=== PATIENT | male | born 2000 | race African-American/Black ===

== ENCOUNTER 2024-05-15 09:44 | Emergency (ER) | payer MEDICAID, OTHER ==
[~2024-05-15] VITALS: Ht 172.7 cm; Wt 78.0 kg
[2024-05-15 09:48] VITALS: TEMP 36.9; O2SAT 99
[2024-05-15 10:28] LABS: DIFFERENTIAL COMMENT 0; EOSINOPHILS % 0.3 % (0.0-5.0); HEMATOCRIT. 38.6 % (42.0-52.0); HEMOGLOBIN. 13.1 g/dL (14.0-18.0); LYMPHOCYTES % 22.3 % (20.0-50.0); MEAN CORPUSCULAR HEMOGLOBIN 34.3 pg (28.0-32.0); MEAN CORPUSCULAR HGB CONC 33.9 g/dL (31.0-37.0); MEAN CORPUSCULAR VOLUME 101.3 fL (80.0-94.0); MEAN PLATELET VOLUME 8.1 fl (7.4-10.4); MONOCYTES % 3.9 % (2.0-8.0); NEUTROPHILS % 72.5 % (40.0-76.0); PLATELET 197 x1000/uL (130-400); RED BLOOD CELL COUNT 3.81 mill/uL (4.7-6.1); RED CELL DISTRIBUTION WIDTH 14.4 % (11.6-14.6)
[2024-05-15 10:35] LABS: CARBON DIOXIDE 23 mEq/L (21-32); CHLORIDE 99 mEq/L (98-107); POTASSIUM 3.4 mEq/L (3.5-5.1); SODIUM 137 mEq/L (136-145)
[2024-05-15 10:36] LABS: CALCIUM 10.1 mg/dL (8.7-10.4)
[2024-05-15 10:40] LABS: CREATININE 0.9 mg/dL (0.6-1.3)
[2024-05-15 10:41] LABS: GLUCOSE 126 mg/dL (70-105); UREA NITROGEN BLOOD 7 mg/dL (9-23)
[2024-05-15 10:42] LABS: ALANINE AMINOTRANSFERASE 111 IU/L (10-49)
[2024-05-15 10:43] LABS: ALBUMIN 4.8 g/dL (3.2-4.8); ASPARTATE AMINOTRANSFERASE 198 IU/L (<34); BILIRUBIN TOTAL 0.6 mg/dL (0.1-1.0); PROTEIN TOTAL 8.2 g/dL (6.0-8.3)
[2024-05-15] MEDS: MORPHINE SULFATE 4 MG/ML INJ (FOR IV/IM USE) IM ONE (10:46)
[2024-05-15] MEDS ORDERED: KETOROLAC 15MG/ML VIAL IV ONE (11:15)
[2024-05-15] MEDS: SODIUM CHLORIDE 0.9% 1,000 ML IV ONE (12:53)
[2024-05-15 12:59] VITALS: BP 142/103; PULSE 127; RESP 18
[2024-05-15] MEDS: KETOROLAC 15MG/ML VIAL IV NR (12:59)
[2024-05-15] MEDS ORDERED: SODIUM CHLORIDE 0.9% 1,000 ML IV SCH (15:00)
[2024-05-15] MEDS ORDERED: CLONIDINE 0.1MG TABLET PO PRN (15:00)
[2024-05-15] MEDS ORDERED: ENOXAPARIN 40MG/0.4ML SYR SUBCUT SCH (15:00)
[2024-05-15] MEDS ORDERED: MORPHINE SULFATE 2 MG/ML INJ (NOT FOR IM USE) IV PRN (15:00)
[2024-05-15] MEDS ORDERED: ONDANSETRON HCL 4MG/2ML INJ IV PRN (15:00)
[2024-05-15] MEDS ORDERED: MAGNESIUM/ALUMINUM HYDROXIDE/SIMETHICONE 30ML UDC PO PRN (15:00)
[2024-05-15] MEDS ORDERED: NALOXONE HCL 0.4MG/ML VIAL IV PRN (15:00)
[2024-05-15] MEDS ORDERED: PIPERACILLIN/TAZO 3.375G/50ML 50 ML IV SCH (22:00)
[2024-05-16] MEDS ORDERED: PANTOPRAZOLE SODIUM 40 MG/VIAL IV SCH (09:00)
== END 2024-05-15 10:12 | disposition left against medical advice (07) ==
LOC: ER 09:44 → EDBEDREQ 13:12 → EDBEDREQTM 13:12
DX: K85.90 Acute pancreatitis without necrosis or infection, unspecified (principal); Z79.899 Other long term (current) drug therapy
CPT/HCPCS: 80053; 83690; 85025; 36415; 74176; 76705; 96372; 96374; 99285; J1885; J2270; J7030; Z7610 ×2